=== PATIENT | male | born 1955 ===

== ENCOUNTER → 2023-05-18 | Emergency (ER) | payer OTHER ==
[~2023-05-18] VITALS: Ht 177.8 cm; Wt 90.9 kg
[2023-05-18 11:36] VITALS: BP 164/99; PULSE 74; RESP 18; TEMP 98; O2SAT 98
== END | disposition left against medical advice (07) ==
LOC: ER 11:23
DX: F10.20 Alcohol dependence, uncomplicated (principal); Z53.21 Procedure and treatment not carried out due to patient leaving prior to being seen by health care provider
CPT/HCPCS: 99281